=== PATIENT | male | born 1985 | race Two or more races ===

== ENCOUNTER 2019-03-04 08:23 | Emergency (ER) | payer OTHER ==
[~2019-03-04] VITALS: Ht 180.3 cm; Wt 95.3 kg
[2019-03-04] MEDS ORDERED: NKM (08:35)
--- NOTE | 2019-03-04 08:39 | NUR ---
ED Nurse Note: patient ambulated into the ER from work with a laceration on his left first digit. Patient states he cut his finger when he was cutting an avocado. patient is aaox4 and on room air. Patient states he has a pain scale of 6/10. Placed gauze on the site to stop from bleeding.
[2019-03-04 08:43] VITALS: BP 136/88
[2019-03-04] MEDS ORDERED: Lidocaine 1% MPF 10mg/ml 5ml INJ ONE (08:45)
--- NOTE | 2019-03-04 08:48 | Emergency Room Report ---
History of Present Illness General Chief Complaint: Laceration Source: Patient Present Illness HPI 33-year-old male presents with laceration to left hand at base of first digit after cutting and avocado at 8 AM this morning. Bleeding is mostly controlled with pressure still mild oozing. Patient denies any other injuries. Patient's last tetanus shot was 6 to 7 years ago. Allergies: Coded Allergies: No Known Allergies (Unverified , 03/04/19) Nursing Documentation-[facility] Past Medical History: No Stated History Review of Systems Constitutional: Denies: fever Eye: Denies: acuity changes Respiratory: Denies: cough, shortness of breath Cardiovascular: Denies: chest pain Gastrointestinal: Denies: nausea, vomiting Skin: Reports: other - Ulceration; Denies: rash Neurological: Denies: headache Physical Exam Vital Signs Date Time Temp Pulse Resp B/P (MAP) Pulse Ox O2 Delivery O2 Flow Rate FiO2 03/04/19 08:32 98.1 71 16 136/88 (104) 99 Room Air Sp02 EP Interpretation: reviewed, normal General Appearance: normal inspection, well appearing, no apparent distress, alert ENT: EOM grossly intact, normal voice, moist mucus membranes Respiratory: no respiratory distress, speaking full sentences Cardiovascular #1: normal peripheral pulses Musculoskeletal: moves extm spontaneously, other - Full range of motion of left hand, extension, flexion of all 5 digits. Neurologic: sensory intact - Sensation intact over entire hand and distal to injury, no focal defects Skin: warm/dry, laceration - 2.5 cm at base of second digit on left hand. Mild bleeding uncontrolled with pressure. Procedures Laceration/Wound Repair Laceration/Wound Repair : Consent: Verbal Wound Location: upper extremity Wound's Depth, Shape: linear Wound Length (cm): 2 Wound Explored: clean Irrigated w/ Saline (ccs): 250 Anesthesia: 1% Lidocaine Volume Anesthetic (ccs): 1 Wound Debrided: None Wound Repaired With: sutures Suture Size/Type: 4:0, proline Number of Sutures: 6 Sterile Dressing Applied?: Yes Patient Tolerated: Well Complications: None Medical Decision Making Diagnostic Impression: Primary Impression: Finger laceration ER Course 33-year-old male status post laceration at work. Repaired laceration with 6 stitches as noted above in procedure note. Patient recommend to follow-up in 7 to 10 days for reevaluation and suture removal. Last Vital Signs Date Time Temp Pulse Resp B/P (MAP) Pulse Ox O2 Delivery O2 Flow Rate FiO2 03/04/19 08:32 98.1 71 16 136/88 (104) 99 Room Air Status: improved Disposition: HOME, SELF-CARE Condition: Stable Patient Instructions: Laceration Care, Adult, Sutured Wound Care Additional Instructions: Follow-up in 7 to 10 days for suture removal. Return to emergency room with any changes of color of wound or discharge. Go to primary care doctor in 2 to 3 days for wound check Nirav Rajput M.D. Mar 04, 2019 08:48
[2019-03-04] MEDS ORDERED: Bacitracin Oint UD TOPIC ONE ×2 (09:25→09:30)
[2019-03-04 09:34] VITALS: BP 130/77
--- NOTE | 2019-03-04 09:34 | NUR ---
ER DISCHARGE NOTE: Patient is cleared to be discharged per ALEXEY Rajput, pt is aox4, on room air, with stable vital signs. pt was given dc instructions, pt was able to verbalize understanding, pt id band removed without complications. pt is able to ambulate with steady gait. pt took all belongings. Cleaned patient wound. patient sent home with work note.
== END 2019-03-04 09:34 | disposition home or self-care (01) ==
LOC: EMR 09:08
DX: S61.211A Laceration without foreign body of left index finger without damage to nail, initial encounter (principal); W26.0XXA Contact with knife, initial encounter; Y92.9 Unspecified place or not applicable
CPT/HCPCS: 99282